=== PATIENT | male | born 1995 | race Caucasian/White ===

== ENCOUNTER 2017-01-14 19:48 | Emergency (ER) | payer BC | END 2017-01-14 20:36 | disposition home or self-care (01) | LOC: ER1 19:48 | DX: H66.92 Otitis media, unspecified, left ear (principal); F32.9 Major depressive disorder, single episode, unspecified; Z79.899 Other long term (current) drug therapy | CPT/HCPCS: 99282 ==

== ENCOUNTER 2022-06-17 18:28 | Emergency (ER) | payer BC | END 2022-06-17 21:09 | disposition home or self-care (01) | LOC: ER1 18:28 | DX: S06.0X9A Concussion with loss of consciousness of unspecified duration, initial encounter (principal); W22.8XXA Striking against or struck by other objects, initial encounter; Y92.89 Other specified places as the place of occurrence of the external cause; Y99.0 Civilian activity done for income or pay | CPT/HCPCS: 70450; 99284 ==